=== PATIENT | female | born 1955 | race Caucasian/White ===

== ENCOUNTER 2019-09-13 20:05 | Inpatient (IN) | payer OTHER ==
[~2019-09-13] VITALS: Ht 167.6 cm; Wt 112.0 kg
--- NOTE | ~2019-09-13 | O ---
[facility] [place] [address] OPERATIVE REPORT Name: MAR HOYOS Room #: 359-P ADM IN M.R.#: [id number] Admission: 09/13/19 Attend Phys: Arya Denise Discharge: Date of : 55 Report #: [id number] THIS REPORT FOR: //name// CC: Arya Ortega Beto DATE OF SERVICE: 09/14/2019 PREOPERATIVE DIAGNOSIS: Incarcerated ventral incisional hernia. POSTOPERATIVE DIAGNOSIS: Incarcerated ventral incisional hernia. OPERATION: 1. Laparoscopic converted to open repair of incarcerated ventral incisional hernia. 2. Small bowel resection with single anastomosis. SURGEON: Sky Saldaña MD ANESTHESIA: General. ESTIMATED BLOOD LOSS: 50 mL. SPECIMEN: Small bowel. DRAIN: A 10-Cypriot round. DESCRIPTION OF PROCEDURE: After informed consent was obtained, the patient was brought to the operating room and placed supine. SCDs were placed and working, preoperative antibiotics were administered, Ancef, Flagyl and general anesthesia was induced. The abdomen was prepped and draped in the usual sterile fashion. A 5 mm incision was made in the right upper quadrant. A 5 mm trocar was placed under direct vision. Pneumoperitoneum was established. I was able to visualize the abdomen and the hernia sac. There were too many adhesions of the small bowel into this hernia sac. This appeared to be chronic. I did not think it would be safe to perform laparoscopic surgery. Therefore, the laparoscope was then removed. A midline incision was made below the umbilicus measuring approximately 10 cm. This was through the old hysterectomy scar. Cautery dissection was made down to the fascia, which was incised. Exploration of the abdomen was then undertaken. The small bowel was in a very large hernia sac. There were adhesions of the small bowel to the sac and to the anterior abdominal wall. I began by taking these down using the Metzenbaum scissors. Great care was taken not to injure the small bowel. Small bowel did [facility] [address] [place] [address] OPERATIVE REPORT Name: MAR HOYOS Room #: 359-P ADM IN M.R.#: [id number] Admission: 09/13/19 Attend Phys: Arya Denise Discharge: Date of : 55 Report #: [id number] appear viable. I continued my dissection trying to get this very severely scarred hernia down from the hernia sac. During this dissection, I inspected the bowel. I did not think I could get the whole hernia sac reduced without causing injury to the small bowel or injury to the blood vessels to the small bowel causing bleeding and ischemia. Therefore, I elected to resect this segment. The small bowel was transected proximally and distally from the herniated small bowel down to free small bowel. I then retracted the fascia to the patient's right side. Dissection of the hernia sac was then undertaken off of the abdominal muscles on the left side where the hernia was. Doing this, I was able to free up the small bowel and the hernia sac. Hernia sac was then sent off as a specimen. The small bowel resection was then completed. Small bowel was transected proximally and distally with a JOSE A blue load stapler. I then ligated the mesentery using the LigaSure device. The small bowel was then removed. Vuqd-zz-qybh functional end-to-end anastomosis was then undertaken. The proximal small bowel and the distal small bowel, which was at the ileum was brought into apposition, [id number]. It was sutured together with a single 3-0 silk suture. The crsh-jd-llat anastomosis was stapled with a JOSE A blue load 75 stapler. The common enteroenterostomy was closed with a JOSE A blue load stapler as well. The anastomosis was widely patent. The anastomosis was then placed back into the abdominal cavity. The area was then copiously irrigated with normal saline. I closed the hernia sac primarily given that I did not want to use a mesh since we have done a small-bowel resection. The abdominal wall was fairly lax and the muscles came together quite well. The defect measured approximately 5 x 4 cm and the muscles were reapproximated transversely using #1 looped PDS in running fashion. I then closed the midline fascia with #1 looped PDS as well. Given the huge hernia sac that was dissected off, there was a very big empty cavity left of the midline incision. I elected to place 10-Cypriot drain through this old hernia cavity. The skin was then closed with 4-0 Monocryl. Incisions were dressed with sterile gauze. Sterile dressings were applied. COMPLICATIONS: None. DISPOSITION: The patient was taken to recovery in satisfactory condition. By: 1141 1158 Sky Saldaña MD /kathleen
--- NOTE | ~2019-09-13 | EKG ---
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
[~2019-09-13 20:05] MED LIST: FLOMAX0.4 MG PO; IBUPROFEN 800800 MG PO; NORCO 5-325 TA1 EACH PO
[2019-09-13 20:08] VITALS: BP 214/113
[2019-09-13 20:31] LABS: BASOPHILS 1.4 % (0.0-2.0); EOSINOPHILS 2.1 % (0.0-3.0); HEMATOCRIT 45.8 % (37.0-47.0); HEMOGLOBIN 15.2 gm/dL (12.0-15.0); LYMPHOCYTES 39.8 % (24.0-44.0); MCH 29.7 pg (26.0-34.0); MCHC 33.2 g/dL (28.0-37.0); MCV 89.5 fL (80.0-100.0); MONOCYTES 6.4 % (1.0-8.0); PLATELET COUNT 279 thou/uL (150-400); POLYS 50.3 % (36.0-66.0); RBC 5.12 mil/uL (4.20-5.00); RDW 13.8 % (10.5-14.5); WBC 13.9 thou/uL (4.0-11.0)
[2019-09-13 20:39] LABS: ANION GAP 17 mmol/L (7-16); BUN 19 mg/dL (7-18); CALCIUM 11.6 mg/dL (8.5-10.1); CHLORIDE 103 mmol/L (98-107); CO2 23 mmol/L (21-32); CREATININE 1.2 mg/dL (0.6-1.0); GLUCOSE 205 mg/dL (74-106); POTASSIUM 3.4 mmol/L (3.5-5.1); SODIUM 143 mmol/L (136-145)
[2019-09-13 20:50] LABS: ALBUMIN 4.2 g/dL (3.4-5.0); LIPASE 128 U/L (73-393); SGOT 24 U/L (15-37); SGPT 32 U/L (30-65); TOTAL BILIRUBIN 0.3 mg/dL (<0.1-1.0); TOTAL PROTEIN 7.5 g/dL (6.4-8.2); TROPONIN-I <0.06 ng/mL (<0.06)
[2019-09-14] VITALS (11 sets, daily range): BP systolic 100–210; BP diastolic 61–106
--- NOTE | 2019-09-14 02:53 | NUR ---
PATIENT IS A NEW ADMISSION TO THE UNIT THIS SHIFT. SHE ARRIVED VIA CART AND WAS ABLE TO AMBULATE TO THE BED STANDBY ASSIST INCIDENT FREE. PATIENT IS FULLY ALERT AND ORIENTED AND WAS ABLE PARTICIPATE IN ADMISSION. CHIEF COMPLAINT IS PAIN IN ABDOMEN FROM HERNIA WHICH WILL PROBABLY REQUIRE SURGERY TODAY. SHE HAS BEEN UP MULTIPLE TIMES TO BEDSIDE COMMODE AND APPEARS STRONG ON FEET. BREATHING STABLE ON LOW LEVEL OXYGEN EVIDENCED BY ASSESSMENT AND SPOT OXYGENATION CHECKS. NURSE TO COMPLETE ADMISSION AND INITIATE PLAN OF CARE.
[2019-09-14] MEDS ORDERED: ASA81BEC PO (04:20)
[2019-09-14] MEDS ORDERED: FOLIC ACID1 MG PO (04:20)
[2019-09-14] MEDS ORDERED: VITAMIN D310 MC1 PO (04:21)
[2019-09-14] MEDS ORDERED: FISH OIL 1,0001 EAC9 PO (04:22)
[2019-09-14 05:26] LABS: HEMATOCRIT 52.3 % (37.0-47.0); HEMOGLOBIN 16.9 gm/dL (12.0-15.0); MCH 29.6 pg (26.0-34.0); MCHC 32.3 g/dL (28.0-37.0); MCV 91.6 fL (80.0-100.0); RBC 5.71 mil/uL (4.20-5.00); RDW 13.6 % (10.5-14.5); WBC 21.4 thou/uL (4.0-11.0)
[2019-09-14 05:53] LABS: ALBUMIN 4.2 g/dL (3.4-5.0); CREATININE 1.2 mg/dL (0.6-1.0); POTASSIUM 4.1 mmol/L (3.5-5.1); TOTAL BILIRUBIN 0.7 mg/dL (<0.1-1.0); TOTAL PROTEIN 8.5 g/dL (6.4-8.2)
[2019-09-14 06:46] LABS: CALCIUM 10.1 mg/dL (8.5-10.1); CREATININE 1.2 mg/dL (0.6-1.0); PHOSPHORUS 4.1 mg/dL (2.5-4.9)
--- NOTE | 2019-09-14 08:09 | NUR ---
PT JUST TAKEN DOWN FOR SURGERY.
--- NOTE | 2019-09-14 12:53 | EKG ---
[address] [address] ELECTROCARDIOGRAM REPORT Name: MAR HOYOS Room #: 359-P ADM IN M.R.#: [id number] Admission: 09/13/19 Attend Phys: Arya Denise Discharge: Date of : 55 Report #: [id number] THIS REPORT FOR: //name// [facility] ED Test Date: 2019-09-13 Test Time: 20:12:13 Pat Name: MAR HOYOS Department: Room: 359 P Gender: F Technical Assoc: [place] : 1955 Requested By: Arya Denise Order Number: [id number] MD: Fran Duran Measurements Intervals Barnhart Rate: 79 P: 67 TN: 169 QRS: 12 QRSD: 98 T: 38 QT: 388 QTc: 445 Interpretive Statements Sinus rhythm with atrial premature complexes Poor R wave progression Compared to ECG 10/08/2015 05:31:17 Atrial premature complexes are now present Electronically Signed On 09-14-2019 12:52:55 STOVE MOUNTER by Fran Duran [email or web address] <ELECTRONICALLY SIGNED> By: Fran Duran MD, [facility] 09/14/19 1252 11 11 Fran Duran MD, FACC /EPI
[2019-09-15] VITALS (7 sets, daily range): BP systolic 105–158; BP diastolic 74–84
--- NOTE | 2019-09-15 03:01 | NUR ---
PATIENT IS PROGRESSING IN HER CARE PLAN. VITAL SIGNS STABLE WITH PATIENT HAVING MINIMAL COMPLAINTS OF PAIN AND NO NAUSEA. FULLY ORIENTED, PATIENT IS ABLE TO PARTICIPATE IN CARE AND CALL APPROPRIATELY FOR HER NEEDS. BREATHING STABLE ON LOW LEVEL OXYGEN VIA NASAL CANNULA EVIDENCED BY ASSESSMENT AND SPOT OXYGENATION CHECKS. UP WITH ASSISTANCE INCIDENT FREE. MIDLINE ABDOMINAL SURGICAL SITE CLEAN, DRY, AND INTACT. PATIENT HAS HAD MINIMAL SANGUINEOUS DRAINAGE THROUGH ABDOMINAL GENEVIEVE DRAIN. CONTINUE PLAN OF CARE.
--- NOTE | 2019-09-15 05:36 | NUR ---
TRANSFEERED FROM 3W. AXOX4. FAMILY AT BEDSIDE. MID ABD DRESSING DCI. GENEVIEVE DRAIN EMPTIED UPON ARRIVAL. O2 VIA NC 2LPM. NO S/S ACUTE DISTRESS NOTED OR REPORTED AT THIS TIME. WILL CONT TO MONITOR FOR ANY CHANGES IN CONDITION. NPO AT THIS TIME. STAFF NOTIFIED OF NPO STATUS.
--- NOTE | 2019-09-15 08:11 | EKG ---
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: [place] : 1955 Requested By: Arya Denise Order Number: [id number] MD: Ankit Barber Measurements Intervals [place]anan Rate: 79 P: 67 [place]: 169 QRS: 12 QRSD: 98 T: 38 QT: 388 QTc: 445 Interpretive Statements Sinus arrhythmia Left atrial enlargement Compared to ECG 10/08/2015 05:31:17 Atrial abnormality now present Sinus rhythm no longer present T-wave abnormality no longer present Poor R-wave progression no longer present Electronically Signed On 09-15-2019 8:11:33 INSURANCE UNDERWRITER by Ankit Barber [email or web address] <ELECTRONICALLY SIGNED> By: Ankit Barber MD 09/15/19 0811 11 11 Ankit Barber MD /EPI
[2019-09-15 10:11] LABS: HEMATOCRIT 43.8 % (37.0-47.0); MCH 29.6 pg (26.0-34.0); MCHC 32.2 g/dL (28.0-37.0); MCV 91.9 fL (80.0-100.0); RBC 4.76 mil/uL (4.20-5.00); RDW 13.9 % (10.5-14.5); WBC 20.4 thou/uL (4.0-11.0)
[2019-09-15 10:12] LABS: HEMOGLOBIN 14.1 gm/dL (12.0-15.0)
[2019-09-15 10:24] LABS: CALCIUM 9.4 mg/dL (8.5-10.1); CREATININE 1.6 mg/dL (0.6-1.0); POTASSIUM 4.8 mmol/L (3.5-5.1)
--- NOTE | 2019-09-15 12:07 | NUR ---
PT ASSESSMENTS DOCUMENTED. PT SEEN BY DR. GUERRA THIS AM. WITH NO ORDERS PLACED IN COMPUTER. CALLED AND SPOKE WITH DR. GUERRA TO CLARIFY. ORDERS FOR PT/OT. TO AMBUALTE AND HAVE PATIENT SIT IN CHAIR TID. CHANGES TO PAIN MEDICATION. ORDERS TO D/C PINO. OKAY TO ADVANCE DIET TO CLEAR LIQUIDS TOLERATED. REPORT GIVEN TO DELANEY CHANDLER WHO WILL BE TAKEN OVER CARE FOR THIS PATIENT.
--- NOTE | 2019-09-15 14:25 | NUR ---
PT ADMITTED RLEATED TO HERNIA. CM REVIEWED CHART AND SPOKE WITH CARE TEAM. CM MET WITH PT AT BEDSIDE THIS DAY. PT IS A&O X4. CM ROLE INTRODUCED. PT INDICATED THAT SHE LIVES IN A HOUSE WITH HER SPOUSE WITH 4 STEPS TO ENTER AND NO STEPS THAT SHE WOULD NEED TO USE UPON DC INSIDE. 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 PT INDICATED NO DME OR HH HX. PT INDICATED SHE PLANS TO RETURN HOME ONCE MEDICALLY STABLE. CM TO FOLLOW INDICATED WITH DC PLANNING.
--- NOTE | 2019-09-15 16:13 | NUR ---
ASSUMED CARE AT 11AM. SITTING IN CHAIR, OX4. NO COMPLAINTS OF PAIN AT THIS TIME. PT/OT CONSULTED. PRINGLE REMOVED. ABDOMINAL DRESSING CLEAN, DRY AND INTACT. GENEVIEVE BULB COMPRESSEDF WITH SEROUSSANGUNOUS FLUID NOTED. VSS.
--- NOTE | 2019-09-16 02:40 | NUR ---
PT CARE ASSUMED AT 1900 WITH PT IN CHAIR WITH FAMILY.PT IS A/O X4.PT IS UP TO BATHROOM WITH SBA.PT MIDLINE INCISION DRESSING C/D/I.PT HAS 2 LAP SITES.PT PAIN AT 2 AND DIDNOT WANT PAIN MEDICATION.PT C/O NAUSEA AND WAS GIVEN ZOFRAN.IV SITE INFILTRATED AND D/C AND ANOTHER IV STARTED ON RT WRIST.CONTINUE POC TILL EOS
[2019-09-16 04:22] VITALS: BP 152/73
[2019-09-16 05:57] LABS: CALCIUM 10.1 mg/dL (8.5-10.1); CREATININE 1.1 mg/dL (0.6-1.0); POTASSIUM 4.4 mmol/L (3.5-5.1)
[2019-09-16 06:03] LABS: HEMATOCRIT 38.4 % (37.0-47.0); HEMOGLOBIN 12.5 gm/dL (12.0-15.0); MCHC 32.5 g/dL (28.0-37.0); PLATELET COUNT 206 thou/uL (150-400); RBC 4.22 mil/uL (4.20-5.00); WBC 19.1 thou/uL (4.0-11.0)
[2019-09-16 06:08] LABS: MCH 29.6 pg (26.0-34.0); MCV 90.9 fL (80.0-100.0); RDW 14.1 % (10.5-14.5)
[2019-09-16 07:15] VITALS: BP 146/96
[2019-09-16 08:05] LABS: ABSOLUTE NEUTROPHILS 14.5 thou/uL (1.4-8.2)
[2019-09-16 08:06] LABS: ANISOCYTOSIS 1+
--- NOTE | 2019-09-16 11:36 | NUR ---
Resumed care at 0700. PT got up to the recliner for breakfast. PT denied any pain but reported nausea. PRN nausea medication was given with relief. PT tolerated her morning medications well. Nurse educated PT about using incentive spirometer, splinting abdomen for pain when coughing, and encouraged ambulation. PT verbalized understanding. RT gave PT an incentive spirometer for use. PT is currently up in the recliner. is at bedside. Call light within reach and nurse will continue to monitor.
[2019-09-16 15:43] VITALS: BP 148/92
--- NOTE | 2019-09-16 16:06 | PATH ---
[facility] [address] [address] PATHOLOGY RPT PROCEDURE Name: PRIYA TOLEDO Room #: 462-P ADM IN M.R.#: [id number] Admission: 09/13/19 Date of : 55 Discharge: Report #: [id number] Path Case #: [id number] [facility] Accession Number: [id number] . 01 Material submitted: . PART A: small bowel - SMALL BOWEL PART B: hernia - HERNIA SAC . 01 Clinical history: . Ventral hernia Incarcerated ventral hernia . 02 Diagnosis: A. Small bowel, resection: - Transmural ischemic necrosis, history of incarcerated hernia. - Negative for malignancy. - Margins of resection showing viable mucosa. . B. Hernia sac, repair: - Congested dense fibrovascular connective tissue associated with reactive mesothelial hyperplasia, history of incarcerated hernia. (IUV:jihan; 09/16/2019) QMS 09/16/2019 1248 Local . 02 Electronically signed: . Flory Herrera MD, Pathologist NPI- [id number] . 01 Gross description: . A. The specimen is received in formalin, labeled "Priya Toledo, small bowel" and consists of an unoriented segment of ischemic small bowel measuring approximately 375 cm in length and ranging from 1.7 cm to 3.8 cm in diameter lined with mesenteric fat measuring up to 5.3 cm. Both margins are closed with eloy. The serosa is dark pink-purple, smooth, shiny. Opening reveals the lumen contains abundant blood/clot. The mucosa is dark purple with no masses or lesions. The mesenteric fat reveals no blood clot/thrombus. No unremarkable small bowel mucosa is identified. Financial Coordinator sections are submitted as follows: . A1-A2: Margins A3-A6: Ischemic bowel . B. The specimen is received in formalin, labeled "Priya Toledo, hernia sac" and consists of a rubbery saccular segment of white medrano tissue with attached yellow adipose tissue measuring 12.5 x 5.8 x 2.0 cm. Sectioning reveals congestion with no masses or lesions. Financial Coordinator sections are submitted [place] [address] PATHOLOGY RPT PROCEDURE Name: PRIYA TOLEDO Room #: 462-P ADM IN M.R.#: [id number] Admission: 09/13/19 Date of : 55 Discharge: Report #: [id number] Path Case #: [id number] (SDY; 09/15/2019) /STEVE 09/16/2019 [facility] . 02 Pathologist provided ICD-10: K55.069, K43.6 . 02 CPT . 85829, 177539 Specimen Comment: A courtesy copy of this report has been sent to [phone] Specimen Comment: [phone], Specimen Comment: Report sent to ,DR MONTERO / DR BROWN Performed at: [address], [place] [id number] MD Ezio Armas MD Phone: [phone] Performed at: [address] [id number] MD Flory Herrera MD Phone: [phone]
[2019-09-16 20:43] VITALS: BP 156/89
[2019-09-17 08:00] VITALS: BP 141/69
--- NOTE | 2019-09-17 08:55 | NUR ---
progress pt a/o x4 up with sba pt bs hypo on left and hyper on right at 2100 up to br passed a large amount of flatus and had a bm , pt stated nausea resolved and she just cant handle the clear liquid diet she would like a reg diet days to call and check with physician.
[2019-09-17 12:26] LABS: ABSOLUTE NEUTROPHILS 8.6 thou/uL (1.4-8.2); BASOPHILS 0.3 % (0.0-2.0); EOSINOPHILS 1.5 % (0.0-3.0); HEMATOCRIT 32.2 % (37.0-47.0); HEMOGLOBIN 10.8 gm/dL (12.0-15.0); LYMPHOCYTES 7.8 % (24.0-44.0); MCH 30.5 pg (26.0-34.0); MCHC 33.6 g/dL (28.0-37.0); MCV 90.7 fL (80.0-100.0); MONOCYTES 8.6 % (1.0-8.0); PLATELET COUNT 180 thou/uL (150-400); POLYS 81.8 % (36.0-66.0); RBC 3.55 mil/uL (4.20-5.00); RDW 13.5 % (10.5-14.5); WBC 10.5 thou/uL (4.0-11.0)
[2019-09-17 12:35] LABS: CALCIUM 9.6 mg/dL (8.5-10.1); POTASSIUM 3.7 mmol/L (3.5-5.1)
[2019-09-17] MEDS ORDERED: HYDROCODON-ACE1 EAC7 PO (13:34)
[2019-09-17] MEDS ORDERED: FLAGYL500 M1 PO (13:34)
[2019-09-17] MEDS ORDERED: LEVAQUIN 500 M500 M3 PO (13:34)
[2019-09-17] MEDS ORDERED: COLACE 100 MG100 MG PO (13:34)
[2019-09-17 15:00] VITALS: BP 131/67
--- NOTE | 2019-09-17 16:13 | NUR ---
CARE TEAM INDICATED THAT DC IS CANCLED PT IS HAVING INCREASED STOOLS. TO MONITOR AND ANTICIPATE POSSIBLE DC HOME TOMORROW. CM TO FOLLOW INDICATED WITH DC PLANNING.
[2019-09-17 19:20] VITALS: BP 140/77
[2019-09-17 20:05] LABS: URINE BILIRUBIN NEGATIVE (Negative); URINE BLOOD NEGATIVE (Negative); URINE CLARITY CLEAR; URINE COLOR YELLOW; URINE GLUCOSE-RANDOM* NEGATIVE (Negative); URINE KETONES NEGATIVE (Negative); URINE LEUKOCYTES-REFLEX NEGATIVE (Negative); URINE NITRITE-REFLEX NEGATIVE (Negative); URINE PROTEIN (DIPSTICK) NEGATIVE (Negative); URINE SPECIFIC GRAVITY 1.025 (1.005-1.035); URINE UROBILINOGEN 0.2 E.U./dl (0.2-1.0)
--- NOTE | 2019-09-17 20:17 | NUR ---
Assumed patient care at 0715. Vital signs have been stable. She has denied pain. Patient requested to be taken off of clear liquids and be put on a Regular Diet. Patient has consumed 100% of all meals. She has been up, walking in the hallway with stand by assist. Patient started on IV Antibiotics during this shift; she has had no adverse reactions from this treatment. Patient has reported that she has had diarrhea several times today which started last evening. She denies any nausea and/or vomiting. Reported to RAMESH Gerard.
[2019-09-18 05:18] LABS: HEMOGLOBIN 10.1 gm/dL (12.0-15.0); MCH 30.3 pg (26.0-34.0); MCHC 33.6 g/dL (28.0-37.0); MCV 90.2 fL (80.0-100.0); RBC 3.32 mil/uL (4.20-5.00); RDW 13.2 % (10.5-14.5); WBC 9.3 thou/uL (4.0-11.0)
[2019-09-18 05:26] LABS: ALBUMIN 2.2 g/dL (3.4-5.0); CALCIUM 8.9 mg/dL (8.5-10.1); CREATININE 0.9 mg/dL (0.6-1.0); PHOSPHORUS 2.3 mg/dL (2.5-4.9); POTASSIUM 3.3 mmol/L (3.5-5.1)
[2019-09-18 08:03] VITALS: BP 124/60
--- NOTE | 2019-09-18 09:57 | NUR ---
PROGRESS PT PROGRESSING UP WITH SBA, TOLERATING DIET HAVING STOOLS STILL LOOSE BUT ARE SLOWING DOWN. GENEVIEVE DRAIN INTACT 75 CC OF SEROUS FLUID MIDLINE INCISION INTACT WELL APPROXIMATED WITH STERI STRIP IN PLACE NO DRAINAGE REDNESS OR OTHER S/S OF INFECTION NOTED. LUNGS CLEAR USING ISP INDEPENDENTLY POSSIBLE DC HOME TODAY.
[2019-09-18 10:09] VITALS: BP 124/60
--- NOTE | 2019-09-18 11:00 | NUR ---
Assumed pt care at 7am.Pt in and out of bed to bathroom with minimal assist. Assessment completed.vss.Pt tolerated breakfast.Dr Saldaña here,dc order noted.Dc summary compile and reviewed with pt.Rx given with dc summay copy. Saline lock dc'd. At 1100,pt dc home with in wc accompanied by volunteer.
== END 2019-09-18 11:00 | disposition home or self-care (01) | DRG 329 ==
LOC: ER 20:05 → 4W 22:44 → EROBS 22:44 → 3W 09-14 00:42 → 4W 09-15 05:16 → ENTRNSPT 09-18 10:52 → 4W 09-18 11:00 → EDTRNSPTSTS 09-18 11:14
PROVIDERS: Emergency Medicine; Hospitalist; Internal Medicine; Nurse Practitioner; Surgery; ADMIT Hospitalist
PROC: 0WQF0ZZ Repair Abdominal Wall, Open Approach (ICD-10-PCS; principal; 2019-09-14)
PROC: 0WJF4ZZ Inspection of Abdominal Wall, Percutaneous Endoscopic Approach (ICD-10-PCS; principal; 2019-09-14)
PROC: 0DT80ZZ Resection of Small Intestine, Open Approach (ICD-10-PCS; principal; 2019-09-14)
DX: K43.0 Incisional hernia with obstruction, without gangrene (principal); N17.0 Acute kidney failure with tubular necrosis; Z68.41 Body mass index [BMI] 40.0-44.9, adult; E87.2 Acidosis; D62 Acute posthemorrhagic anemia; E87.6 Hypokalemia; E66.01 Morbid (severe) obesity due to excess calories; Z96.643 Presence of artificial hip joint, bilateral; R74.0 Nonspecific elevation of levels of transaminase and lactic acid dehydrogenase [LDH]; D72.829 Elevated white blood cell count, unspecified; E83.52 Hypercalcemia; I12.9 Hypertensive chronic kidney disease with stage 1 through stage 4 chronic kidney disease, or unspecified chronic kidney disease; N18.9 Chronic kidney disease, unspecified; E86.0 Dehydration; K57.90 Diverticulosis of intestine, part unspecified, without perforation or abscess without bleeding; Z98.1 Arthrodesis status; Z90.710 Acquired absence of both cervix and uterus; Z79.82 Long term (current) use of aspirin; Z79.891 Long term (current) use of opiate analgesic; Z79.899 Other long term (current) drug therapy; Z88.8 Allergy status to other drugs, medicaments and biological substances; Z53.31 Laparoscopic surgical procedure converted to open procedure
CPT/HCPCS: 10047; 10080; 50093; 50101; 50249; 50331; 50411; 50445; 50455; 50555; 50558; 51708; 51712; 52265; 52266; 54022; 54118; 56462; 56525; 56526; 56527; 56528; 57103; 62110; 62900; 64039; 64043; 70005